=== PATIENT | female | born 1990 | race Two or more races ===

== ENCOUNTER 2025-03-22 15:54 | Emergency (ER) | payer MEDICAID, SELFPAY ==
[2025-03-22 15:55] VITALS: BMI 32.2
[2025-03-22 16:32] LABS: Basophils # (Auto) 0.0 Thou/mm3 (0.0-0.2); Basophils % (Auto) 1 % (0-2.5); Eosinophils # (Auto) 0.2 Thou/mm3 (0.0-0.5); Eosinophils % (Auto) 2 % (0-10); Hematocrit 31.4 % (36.0-46.0); Hemoglobin 10.3 g/dL (12.0-16.0); Immature Granulocytes Auto 0.02 Thou/mm3 (0.00-0.00); Lymphocytes # (Auto) 3.2 Thou/mm3 (1.0-4.8); Lymphocytes % (Auto) 45 % (10-50); Mean Corpuscular HGB Conc 32.8 g/dl (31.0-37.0); Mean Corpuscular Hemoglobin 26.9 pg (25.0-35.0); Mean Corpuscular Volume 82 fL (80-100); Monocytes # (Auto) 0.4 Thou/mm3 (0.0-0.8); Monocytes % (Auto) 6 % (0-12); Neutrophils # (Auto) 3.2 Thou/mm3 (1.8-7.7); Neutrophils % (Auto) 45 % (37-80); Nucleated Red Blood Cell # 0.00 Thou/mm3 (0.00-0.00); Nucleated Red Blood Cell % 0 /100 WBC (0); Platelet Count 276 Thou/mm3 (140-440); RDW Standard Deviation 47.1 fL (36.4-46.3); Red Blood Count 3.83 Miln/mm3 (4.00-5.20); White Blood Count 7.1 Thou/mm3 (3.6-11.0)
[2025-03-22 16:46] LABS: INR 1.0 (0.9-1.3); Partial Thromboplastin Time 24.5 Seconds (22.0-36.0); Prothrombin Time 11.2 Seconds (9.0-12.2)
[2025-03-22 16:50] LABS: Alanine Aminotransferase 12 U/L (10-49); Albumin, Serum 4.2 gm/dL (3.5-5.0); Albumin/Globulin Ratio 1.3 (1.2-2.2); Alkaline Phosphatase 63 U/L (46-116); Amylase 52 U/L (30-118); Anion Gap 9 (7-16); Aspartate Amino Transferase 17 U/L (0-34); BUN/Creatinine Ratio 9 Ratio (12-20); Bilirubin,Total 0.3 mg/dL (0.3-1.2); Blood Urea Nitrogen 6 mg/dL (9-23); Calcium 9.1 mg/dL (8.3-10.6); Calcium (Corrected) 9.1 mg/dL (8.5-10.1); Carbon Dioxide 26.1 mMol/L (20.0-31.0); Chloride 106 mMol/L (98-107); Creatinine (Component) 0.7 mg/dL (0.6-1.3); Estimated Creatinine Clearance 103.3 mL/min (>60); Globulin 3.3 gm/dL (2.3-3.5); Glucose 102 mg/dL (74-106); Lipase 37 U/L (12-53); Magnesium 2.1 mg/dL (1.6-2.6); Osmolality,Calculated 278 (275-295); Potassium 4.6 mMol/L (3.4-5.1); Sodium 141 mMol/L (136-145); Total Protein 7.5 gm/dL (5.7-8.2); eGFR > 60 See Note
[2025-03-22 16:56] VITALS: BP 146/88; PULSE 58; RESP 18; TEMP 36.3; O2SAT 99
--- NOTE | 2025-03-22 17:09 | PD.EDRME ---
Rapid Medical Screening Exam RME Arrival date/time: 03/22/25 15:54 Chief Complaint: Abdominal Pain Time Seen by Provider: 03/22/25 17:06 Vital signs: Vital Signs Temperature 97.4 F 03/22/25 16:56 Pulse Rate 58 L 03/22/25 16:56 Respiratory Rate 18 03/22/25 16:56 Blood Pressure 146/88 H 03/22/25 16:56 Pulse Oximetry (%) 99 03/22/25 16:56 Oxygen Delivery Method Room Air 03/22/25 16:56 Pulse ox is 99% room air Vital signs reviewed by provider: Yes RME Narrative: Patient is a 35-year-old female who presents to ED with a complaint of right upper quadrant pain.
[2025-03-22 17:56] LABS: Collection Type, Urine Clean Catch
[2025-03-22 18:01] LABS: HCG Qualitative,Urine Negative
--- NOTE | 2025-03-22 18:10 | EDNOTE_ITS ---
ED Abdominal Pain RME/HPI General Chief Complaint: Abdominal Pain Stated complaint: LIVER PAIN S/P DRINKING ETOH Time seen by provider: 03/22/25 17:06 Arrival date/time: 03/22/25 15:54 Source: patient Mode of arrival: ambulatory Limitations: no limitations RME / HPI RME / HPI narrative: Patient is a 35-year-old female who presents to ED with a complaint of right u pper quadrant pain. MD complaint: abdominal pain Onset (ago): day(s) (Up to 3 days) Consistency: constant Location: RUQ Severity scale (1-10): 5 Quality: stabbing and aching Context: other (EtOH abuse) Associated symptoms: nausea, vomiting and other (Pain) Related Data Previous Rx's ?Medication ?Instructions ?Recorded cyclobenzaprine 10 mg tablet 10 mg PO HS #20 tabs 04/09 Allergies Allergy/AdvReac Type Severity Reaction Status Date / Time hydrocodone AdvReac Severe Chest Pain Verified 03/22/25 15:57 Review of Systems Constitutional Constitutional: Reports system reviewed and no additional complaints, except as documented Eyes Eyes: Reports system reviewed and no additional complaints, except as documented, Denies dry eyes, Denies exophthalmos and Reports floaters Cardiovascular Cardiovascular: Denies chest pain with activity and Denies claudication ED Exam Narrative Physical exam: The abdomen is tender to palpation in the right upper quadrant. There is mild guarding present. There is no apparent masses present. Negative for rebound tenderness General Limitations: Present no limitations General appearance: Present alert and in no apparent distress Head Head exam: Present atraumatic Eye Eye exam: Present normal appearance and EOMI ENT ENT exam: Present normal exam, normal oropharynx and mucous membranes moist Neck Neck exam: Present normal inspection, full ROM and trachea midline Chest Chest inspection: Present normal inspection Respiratory Respiratory exam: Present normal lung sounds bilaterally Cardiovascular Cardiovascular exam: Present regular rate, normal rhythm and normal heart sounds Abdominal Exam Abdominal exam: Present soft, tenderness (Right upper quadrant) and guarding (Right upper quadrant) Abdominal tenderness: Present RUQ Rectal Exam Rectal exam: Present deferred Extremities Exam Extremities exam: Present normal inspection and full ROM Back Exam Back exam: Present normal inspection and full ROM Neurological Exam Neurological exam: Present alert and oriented X3 Psychiatric Psychiatric exam: Present normal affect and normal mood Skin Skin exam: Present warm, dry, intact and normal color Course Quality Measures none (NA) Orders Category Date Time Status Amylase Stat Lab 03/22/25 16:11 Completed CBC Stat Lab 03/22/25 16:11 Completed Comprehensive Metabolic Panel Stat Lab 03/22/25 16:11 Completed HCG Qualitative,Urine Stat Lab 03/22/25 17:30 Completed Lipase Stat Lab 03/22/25 16:11 Completed Magnesium Stat Lab 03/22/25 16:11 Completed Partial Thromboplastin Time Stat Lab 03/22/25 16:11 Completed Prothrombin Time with INR Stat Lab 03/22/25 16:11 Completed Urinalysis Stat Lab 03/22/25 17:30 Completed Ketorolac Inj [Toradol Inj] Med 03/22/25 18:31 Once 30 mg IM X1 ONE Vital Signs Vital signs: Vital Signs Temperature 97.4 F 03/22/25 16:56 Pulse Rate 58 L 03/22/25 16:56 Respiratory Rate 18 03/22/25 16:56 Blood Pressure 146/88 H 03/22/25 16:56 Pulse Oximetry (%) 99 03/22/25 16:56 Oxygen Delivery Method Room Air 03/22/25 16:56 Abdominal Pain MDM MDM Narrative MDM Narrative:: Patient will be discharged in no apparent distress. She has to follow-up with primary care physician in 1 week. If she is worse she is to return here Patient data External records reviewed:: Other (specify) (NA) Clinical information provided by:: patient Social determinants that could affect healthcare access:: none (NA) Patient has the following chronic illnesses:: NA How is presenting disease/condition affected by chronic disease/condition?: no chronic disease Evaluation data The following diagnostics were reviewed and interpreted by me:: other (specify) (NA) Lab and/or radiology exams considered but not ordered:: NA Interpretation Summary: NA Medications / Prescriptions Medications or Prescriptions considered but not ordered:: NA Medication administrations:: Medication Administration History Ketorolac Tromethamine (Ketorolac Inj 60 Mg/2 Ml Vial) 30 mg IM X1 ONE Stop: 03/22/25 18:32 NA Consultations Consultation(s) initiated? (list below): No Diagnosis Differential diagnosis abdominal pain: calculus of kidney, diverticulitis, endometriosis and pancreatitis Most likely diagnosis given after review of the tests above:: NA Admission Indicated Admission indicated?: not indicated Admission Request Was there a request for admission?: No Disposition Plan Disposition Plan: Discharge Discharge Attestation Discharge Attestation: The patient and all family members were given an opportunity to ask questions and understood the discharge instructions. Discharge instructions specifically effects, indications for sooner follow up or return to the emergency department, and the expected course of current diagnosis. Patient condition: Stable Discharge Plan Plan Patient Disposition: HOME (Self Care) Discharge Disposition comment: Patient to be discharged no apparent distress Patient condition on transfer: Stable Prescriptions/Referrals Prescriptions/Med Rec: New cyclobenzaprine 10 mg tablet 10 mg PO HS Qty: 20 0RF Referrals: Owen Hand MD [Primary Care Provider] - In 1 week Problem List Clinical Impression: Abdominal pain Patient/Caregiver Discharge Instructions Discharge Activity: activity as tolerated Education Materials: Abdominal Pain Print Language: Luxembourgish Stand Alone Forms: Chaya Award Info., Patient Portal Info Letter PA/HEALTH PROMOTION EDUCATOR Supervising Physician CAMILLA/HEALTH PROMOTION EDUCATOR Supervising Physician: ONEIL
[2025-03-22 18:17] LABS: Bilirubin,Urine Negative (Negative); Blood,Urine Negative (Negative); Clarity,Urine Clear (Clear/Hazy); Color,Urine Colorless (Lt Yel-Yel); Glucose, Urine Negative (Negative); Ketones,Urine Negative (Negative); Leukocyte Esterase,Urine Negative (Negative); Nitrite,Urine Negative (Negative); PH,Urine 6.0 (5.0-7.0); Protein,Urine Negative (Neg - Trace); RBC,Urine 1 /hpf (0-3); Specific Gravity,Urine 1.008 (1.001-1.035); Squamous Epithelial Cell,Urine 4 /hpf (0-5); Urobilinogen,Urine Negative mg/dL (0.0-1.0); WBC,Urine 2 /hpf (0-5)
[2025-03-22] MEDS: KETOROLAC INJ 60 MG/2 ML VIAL 30 MG IM (19:00)
== END 2025-03-22 19:25 | disposition home or self-care (01) ==
PROVIDERS: Emergency Provider Family Medicine; PCP Family Medicine
DX: R10.11 Right upper quadrant pain (principal)
CPT/HCPCS: 36415; 80053; 81001; 81025; 82150; 83690; 83735; 85025; 85610; 85730; 96372; 99283; J1885

== ENCOUNTER 2025-03-30 12:17 | Emergency (ER) | payer MEDICAID, SELFPAY ==
[2025-03-30 12:18] VITALS: BMI 33.0
[2025-03-30 12:34] VITALS: BP 136/82; PULSE 99; RESP 18; TEMP 37.2; O2SAT 97
--- NOTE | 2025-03-30 12:45 | XR_ITS ---
Examination: PA chest single view TECHNIQUE: Upright PA chest single view Date and time: March 30, 2025 1225 hours INDICATIONS: Shortness of breath chest pain beginning 3 days ago FINDINGS: Normal heart size Lungs are clear. The osseous structures are intact IMPRESSION: No active disease
--- NOTE | 2025-03-30 12:45 | EKG_ITS ---
[facility] Test Date: 2025-03-30 Pat Name: KOKI BERNABE Department: Room: - Gender: Female [employer] Shear Operator: : 1990 Requested By: Sabino Holley Order Number: [id number] Reading MD: Sabino Holley Measurements Intervals [place] Rate: 80 P: 37 VT: 171 QRS: 33 QRSD: 103 T: 41 QT: 341 QTc: 394 Interpretive Statements SINUS RHYTHM Compared to ECG 12/04/2022 16:11:09 No significant changes /store/S0/[id number].pdf
[2025-03-30 13:05] LABS: Basophils # (Auto) 0.0 Thou/mm3 (0.0-0.2); Basophils % (Auto) 0 % (0-2.5); Eosinophils # (Auto) 0.1 Thou/mm3 (0.0-0.5); Eosinophils % (Auto) 1 % (0-10); Hematocrit 31.8 % (36.0-46.0); Hemoglobin 10.6 g/dL (12.0-16.0); Immature Granulocytes Auto 0.03 Thou/mm3 (0.00-0.00); Lymphocytes # (Auto) 1.6 Thou/mm3 (1.0-4.8); Lymphocytes % (Auto) 14 % (10-50); Mean Corpuscular HGB Conc 33.3 g/dl (31.0-37.0); Mean Corpuscular Hemoglobin 27.3 pg (25.0-35.0); Mean Corpuscular Volume 82 fL (80-100); Monocytes # (Auto) 0.7 Thou/mm3 (0.0-0.8); Monocytes % (Auto) 6 % (0-12); Neutrophils # (Auto) 9.1 Thou/mm3 (1.8-7.7); Neutrophils % (Auto) 78 % (37-80); Nucleated Red Blood Cell # 0.00 Thou/mm3 (0.00-0.00); Nucleated Red Blood Cell % 0 /100 WBC (0); Platelet Count 267 Thou/mm3 (140-440); RDW Standard Deviation 46.6 fL (36.4-46.3); Red Blood Count 3.88 Miln/mm3 (4.00-5.20); White Blood Count 11.7 Thou/mm3 (3.6-11.0)
[2025-03-30] MEDS: DEXAMETHASONE SOD PHOS INJ 10 MG/ML VIAL IM (13:05)
[2025-03-30] MEDS: ALBUTEROL/IPRATROPIUM (Duoneb) RT SOL 3 ML NEBU INH (13:15)
[2025-03-30 13:17] VITALS: PULSE 85; RESP 19; O2SAT 98
[2025-03-30 13:26] LABS: Alanine Aminotransferase 10 U/L (10-49); Albumin, Serum 4.1 gm/dL (3.5-5.0); Albumin/Globulin Ratio 1.2 (1.2-2.2); Alkaline Phosphatase 63 U/L (46-116); Anion Gap 8 (7-16); Aspartate Amino Transferase 14 U/L (0-34); BUN/Creatinine Ratio 10 Ratio (12-20); Bilirubin,Total 0.3 mg/dL (0.3-1.2); Blood Urea Nitrogen 6 mg/dL (9-23); Calcium 8.8 mg/dL (8.3-10.6); Calcium (Corrected) 8.8 mg/dL (8.5-10.1); Carbon Dioxide 28.7 mMol/L (20.0-31.0); Chloride 105 mMol/L (98-107); Creatinine (Component) 0.6 mg/dL (0.6-1.3); Estimated Creatinine Clearance 122.0 mL/min (>60); Globulin 3.4 gm/dL (2.3-3.5); Glucose 114 mg/dL (74-106); Osmolality,Calculated 281 (275-295); Potassium 3.8 mMol/L (3.4-5.1); Sodium 142 mMol/L (136-145); Total Protein 7.5 gm/dL (5.7-8.2); Troponin I < 0.020 ng/mL (0.0-0.045); eGFR > 60 See Note
[2025-03-30 13:27] LABS: HCG,Qualitative Serum Negative
--- NOTE | 2025-03-30 13:43 | PD.EDFEVER ---
ED Fever RME/HPI General Chief Complaint: Fever Stated Complaint: BODY ACHES, FEVER, , SOB SINCE YEST Time Seen by Provider: 03/30/25 12:19 Source: patient Arrival date/time: 03/30/25 12:17 This is a case of 35-year-old female with no medical history came in in the emergency room due to fever generalized body ache cough nasal congestion for 2 days persistence of the symptoms now with shortness of breath and chest pain this patient decided to start consult here in the emergency room Limitations: no limitations Related Data Previous Rx's ?Medication ?Instructions ?Recorded cyclobenzaprine 10 mg tablet 10 mg PO HS #20 tabs 03/22/25 albuterol sulfate 90 mcg/actuation 2 puff inhalation Q6H PRN 03/30/25 aerosol inhaler (Ventolin HFA) shortness of breath or wheezing #8.5 grams azithromycin 250 mg tablet See Rx Instructions PO .COMPLEX #6 03/30/25 (Zithromax Z-Tank) tabs prednisone 20 mg tablet See Taper PO QDAY 5 days #5 tabs 03/30/25 promethazine-DM 6.25 mg-15 mg/5 mL 5 ml PO Q6H PRN cough #118 mL 03/30/25 oral syrup Allergies Allergy/AdvReac Type Severity Reaction Status Date / Time hydrocodone AdvReac Severe Chest Pain Verified 03/30/25 12:20 Review of Systems Review of Systems Systems Reviewed: All systems reviewed, normal except as documented Constitutional Constitutional: Reports system reviewed and no additional complaints, except as documented, Reports body ache(s), Denies chills, Reports fever(s) and Denies snoring ENT Ears, Nose, Mouth, and Throat: Reports system reviewed and no additional complaints, except as documented and Reports as per HPI Cardiovascular Cardiovascular: Reports system reviewed and no additional complaints, except as documented, Reports chest pain, Reports dyspnea and Denies dyspnea on exertion Respiratory Respiratory: Reports system reviewed and no additional complaints, except as documented, Reports as per HPI, Reports chest congestion, Reports cough, Reports dyspnea, Denies dyspnea on exertion, Denies excessive phlegm production, Denies hemoptysis, Denies pain on inspiration, Reports pain with cough, Denies snoring, Denies stridor and Denies wheezing Gastrointestinal Gastrointestinal: Reports system reviewed and no additional complaints, except as documented, Reports as per HPI, Denies abdominal pain, Denies nausea and Denies vomiting Neurologic Neurologic: Reports system reviewed and no additional complaints, except as documented and Reports as per HPI Allergic/Immunologic Allergic/Immunologic: Denies wheezing Past Medical History Past Medical History NEUROLOGIC: Negative Seizures CARDIAC: Negative Congestive Heart Failure RESPIRATORY: Negative Chronic Obstructive Pulmonary Disease (COPD) GENITOURINARY: Negative Renal Disease ENDOCRINE: Negative Diabetes Mellitus Type 1 or Diabetes Mellitus Type 2 OTHER HISTORY: Negative Blood Transfusions, Blood Transfusion Reaction or Anesthesia Reactions Family History FAMILY HISTORY: Negative Family Cardiac Disorders Surgical History SURGICAL: Positive Tonsillectomy and Section Social History SMOKING STATUS: Never smoker Physical Exam General Limitations: no limitations General appearance: alert, in no apparent distress and other (Patient is awake alert oriented not in distress nontoxic looking well-hydrated well-nourished) Head Head exam: atraumatic, normocephalic and normal inspection Eye Eye exam: Present normal appearance, PERRL and EOMI ENT ENT exam: Present normal exam, normal oropharynx, mucous membranes moist and other (HEENT exam is normal) Neck Neck exam: Present normal inspection, full ROM, trachea midline, tenderness, meningismus, lymphadenopathy, thyromegaly and other (Negative for meningeal sign) Chest Chest inspection: Present normal inspection and symmetric chest wall rise; Absent tenderness Respiratory Respiratory exam: Present normal lung sounds bilaterally and wheezes (Wheezing both lower lung field no crackles no rales no retraction no stridor); Absent respiratory distress Cardiovascular Cardiovascular exam: Present regular rate, normal rhythm and normal heart sounds; Absent bradycardia, tachycardia, irregular rhythm, systolic murmur or diastolic murmur Abdominal Exam Abdominal exam: Present soft and normal bowel sounds; Absent distention, tenderness, guarding, rebound, rigidity, diminished bowel sounds, hyperactive bowel sounds or hypoactive bowel sounds Extremities Exam Extremities exam: Present normal inspection and full ROM Back Exam Back exam: Present normal inspection and full ROM Neurological Exam Neurological exam: Present alert, oriented X3, CN II-XII intact, normal gait and reflexes normal; Absent motor sensory deficit Psychiatric Psychiatric exam: Present normal affect and normal mood Skin Skin exam: Present warm, dry, intact and normal color ED Exam General Limitations: Present no limitations General appearance: Present alert, in no apparent distress and other (Patient is awake alert oriented not in distress nontoxic looking well-hydrated well-nourished) Head Head exam: Present atraumatic, normocephalic and normal inspection Eye Eye exam: Present normal appearance, PERRL and EOMI ENT ENT exam: Present normal exam, normal oropharynx, mucous membranes moist and other (HEENT exam is normal) Neck Neck exam: Present normal inspection, full ROM, trachea midline, tenderness, meningismus, lymphadenopathy, thyromegaly and other (Negative for meningeal sign) Chest Chest inspection: Present normal inspection and symmetric chest wall rise; Absent tenderness Respiratory Respiratory exam: Present normal lung sounds bilaterally and wheezes (Wheezing both lower lung field no crackles no rales no retraction no stridor); Absent respiratory distress Cardiovascular Cardiovascular exam: Present regular rate, normal rhythm and normal heart sounds; Absent bradycardia, tachycardia, irregular rhythm, systolic murmur or diastolic murmur Abdominal Exam Abdominal exam: Present soft and normal bowel sounds; Absent distention, tenderness, guarding, rebound, rigidity, diminished bowel sounds, hyperactive bowel sounds or hypoactive bowel sounds Extremities Exam Extremities exam: Present normal inspection and full ROM Back Exam Back exam: Present normal inspection and full ROM Neurological Exam Neurological exam: Present alert, oriented X3, CN II-XII intact, normal gait and reflexes normal; Absent motor sensory deficit Psychiatric Psychiatric exam: Present normal affect and normal mood Skin Skin exam: Present warm, dry, intact and normal color Course Quality Measures none Orders Category Date Time Status Bedside COVID-19 Antigen Test NOW Care 03/30/25 12:45 Active Bedside Influenza A&B Antigen Test NOW Care 03/30/25 12:45 Completed EKG (ED ONLY) *Do not use* NOW Care 03/30/25 12:45 Completed EKG (ED Only) Stat Exams 03/30/25 12:45 Draft XR chest 1V portable Stat Exams 03/30/25 12:45 Completed CBC Stat Lab 03/30/25 12:55 Completed CMP [Comprehensive Metabolic Panel] Stat Lab 03/30/25 12:55 Completed HCG,Qualitative Serum Stat Lab 03/30/25 12:55 Completed Troponin I Stat Lab 03/30/25 12:55 Completed Albuterol/Ipratr Rt Constance [Duoneb Rt Constance] Med 03/30/25 12:45 Discontinued 3 ml INH X1 ONE Dexamethasone Inj [Decadron Inj] Med 03/30/25 12:45 Discontinued 10 mg IM X1 ONE Vital Signs Vital signs: Vital Signs Temperature 98.9 F 03/30/25 12:34 Pulse Rate 99 03/30/25 12:34 Respiratory Rate 18 03/30/25 12:34 Blood Pressure 136/82 H 03/30/25 12:34 Pulse Oximetry (%) 97 03/30/25 12:34 Oxygen Delivery Method Room Air 03/30/25 12:34 Patient is afebrile not tachycardic not tachypneic BP stable Pulsoxymeter is 97% in room air normal Fever MDM Narrative MDM Narrative:: This is a case of 35-year-old female with no medical history came in in the emergency room due to fever generalized body ache cough nasal congestion for 2 days persistence of the symptoms now with shortness of breath and chest pain this patient decided to start consult here in the emergency room physical examination patient is awake alert oriented not in distress nontoxic looking well-hydrated well-nourished negative for meningeal sign HEENT exam is normal and unremarkable lungs have disc wheezing both lower lung field no crackles no rales no retraction no stridor heart normal rate regular rhythm no murmur the rest of the physical examination neurological exam is normal and unremarkable blood test showed negative for COVID-negative for flu chest x-ray is normal EKG sinus rhythm normal troponin is negative BNP is negative no leukocytosis no anemia kidney and liver function is normal no electrolyte imbalance at this point patient was given dexamethasone and DuoNeb which patient condition markedly improved patient was reassessed after 1 hour patient has no shortness of breath no chest pain patient verbalized improvement of the symptoms patient will follow-up with PCP in 2 days for reevaluation chest pain is not cardiac origin possible due to acute bronchitis no signs and symptoms of sepsis dehydration or hypoxia patient will follow-up with PCP in 2 days for evaluation for chest pain and for possible echocardiogram stress test and Holter monitor recurrence persistent worsening symptoms return precaution was advised Patient was discharged with comfortable condition walking with stable gait. Patient verbalized no further complains explained diagnosis and answered patient question. Patient is comfortable with the proposed management plan including the need to follow up with his/her primary care physician and any specialist if applicable Discussed patient for any urgent condition or worsening sx, He/She needed to go to emergency room immediately or call 911. Patient acknowledge the responsibility to follow up as instructed and to monitor her/his symptoms. For any persistence of the symptoms for more than 3-5 days return precaution advised. Discussed the result of the test and was given printed discharge instruction Patient data External records reviewed:: [facility] previous records Clinical information provided by:: patient Social determinants that could affect healthcare access:: none Patient has the following chronic illnesses:: None How is presenting disease/condition affected by chronic disease/condition?: no chronic disease Evaluation data The following diagnostics were reviewed and interpreted by me:: lab results and radiology exam(s) Lab and/or radiology exams considered but not ordered:: Reviewed Interpretation Summary: Reviewed Medications / Prescriptions Medications or Prescriptions considered but not ordered:: Given Medication administrations:: Medication Administration History Discontinued Medications Albuterol/Ipratropium (Albuterol/Ipratropium (Duoneb) Rt Constance 3 Ml Nebu) 3 ml INH X1 ONE Stop: 03/30/25 12:46 Last Admin: 03/30/25 13:15 Dose: 3 ml Documented By: ALIREZA Dexamethasone Sodium Phosphate (Dexamethasone Sod Phos Inj 10 Mg/Ml Vial) 10 mg IM X1 ONE Stop: 03/30/25 12:46 Last Admin: 03/30/25 13:05 Dose: 10 mg Documented By: DAJUAN Given Consultations Consultation(s) initiated? (list below): No Diagnosis Fever Differential Diagnosis: fever of unknown origin, gastroenteritis, community acquired pneumonia, pyelonephritis, viral infection and influenza Most likely diagnosis given after review of the tests above:: Acute bronchitis Admission Indicated Admission indicated?: not indicated Explain why admission is indicated or not indicated:: Not indicated Admission Request Was there a request for admission?: No Admission Attestation Admission request attestation: Not indicated Disposition Plan Disposition Plan: Discharge Discharge Attestation Discharge Attestation: The patient and all family members were given an opportunity to ask questions and understood the discharge instructions. Discharge instructions specifically effects, indications for sooner follow up or return to the emergency department, and the expected course of current diagnosis. Patient condition: Stable Discharge Plan Plan Patient Disposition: HOME (Self Care) Patient condition on transfer: Stable Prescriptions/Referrals Prescriptions/Med Rec: New azithromycin [Zithromax Z-Tank] 250 mg tablet See Rx Instructions .ROUTE .COMPLEX Qty: 6 0RF Rx Instructions: For 250 mg dose pack: take 500 mg today (day 1), then 250 mg for 4 days (days 2-5) prednisone 20 mg tablet See Taper PO QDAY 5 Days Qty: 5 0RF Taper: Prednisone Taper 20 mg DAILY for 2 Days and 0 Hour 10 mg DAILY for 2 Days and 0 Hour 5 mg DAILY for 7 Days and 0 Hour albuterol sulfate [Ventolin HFA] 90 mcg/actuation HFA aerosol inhaler 2 puff inhalation Q6H PRN (Reason: shortness of breath or wheezing) Qty: 8.5 0RF promethazine-DM 6.25-15 mg/5 mL syrup 5 ml PO Q6H PRN (Reason: cough) Qty: 118 0RF No Action cyclobenzaprine 10 mg tablet 10 mg PO HS Qty: 20 0RF Referrals: Owen Hand MD [Primary Care Provider] - In 1 week Problem List Clinical Impression: Fever, Chest pain of unknown etiology, Acute bronchitis Patient/Caregiver Discharge Instructions Education Materials: Acute Bronchitis, ED Chest Pain, Uncertain Cause, ED FUO Adult Additional Instructions: Follow-up with your primary care physician in 2 days for reevaluation and to be referred to sewage plant supervisor for further evaluation and treatment of chest pain for possible echocardiogram stress test and Holter monitor recurrence persistent worsening symptoms or any emergent concern call 911 or go to the nearest emergency room take your medication as directed finish the course of antibiotic increase water intake keep hydrated Print Language: Japanese Stand Alone Forms: Chaya Award Info., Patient Portal Info Letter CAMILLA/SHIVA Supervising Physician CAMILLA/SHIVA Supervising Physician: Dr Jaime
[2025-03-30 13:49] VITALS: BP 139/90; PULSE 87; RESP 17; TEMP 36.6; O2SAT 100
== END 2025-03-30 14:09 | disposition home or self-care (01) ==
PROVIDERS: Nurse Practitioner Family; Emergency Provider Emergency Medicine; PCP Family Medicine
DX: J20.9 Acute bronchitis, unspecified (principal); R07.9 Chest pain, unspecified
CPT/HCPCS: 36415; 71045; 80053; 84484; 84703; 85025; 87400; 87811; 93005; 94640; 96372; 99284; A9270; J1100

== ENCOUNTER 2025-08-19 15:23 | Emergency (ER) | payer MEDICAID, SELFPAY ==
[2025-08-19 15:23] VITALS: BMI 34.3
[2025-08-19 15:49] VITALS: BP 154/87; PULSE 70; RESP 16; TEMP 36.7; O2SAT 100
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
== END 2025-08-19 16:30 | disposition home or self-care (01) ==
LOC: SERX 16:09
PROVIDERS: Emergency Provider Nurse Practitioner Primary Care
DX: R20.2 Paresthesia of skin (principal); M54.2 Cervicalgia; S09.90XA Unspecified injury of head, initial encounter; V49.9XXA Car occupant (driver) (passenger) injured in unspecified traffic accident, initial encounter
CPT/HCPCS: 99281

== ENCOUNTER 2025-09-13 14:01 | Emergency (ER) | payer MEDICAID, SELFPAY ==
--- NOTE | 2025-09-13 14:20 | XR_ITS ---
Examination: Complete OB ultrasound, less than 14 weeks, transabdominal Date and time of exam: September 13, 2025, 1540 hours INDICATIONS: Vaginal bleeding episode 2 months ago Technique: Obstetrical ultrasound images less than 14 weeks performed via transabdominal imaging Findings: Uterus 11.1 cm intrauterine gestational sac 0.7 cm corresponds to 5 weeks 3 days gestational age No pole, no cardiac motion Right ovary 3.5 cm arterial flow Left ovary 4.1 cm arterial flow IMPRESSION: Empty intrauterine gestational sac corresponding to 5 weeks 3 days gestational age, no pole, no cardiac activity Recommend short-term follow-up transvaginal pelvic sonography to confirm viability
[2025-09-13 14:22] VITALS: BP 134/81; PULSE 85; RESP 18; TEMP 37; O2SAT 98
--- NOTE | 2025-09-13 14:23 | EDNOTE_ITS ---
ED OB Contraction Preg RMI/HPI General Stated complaint: ASSISTED CLEARANCE Time Seen by Provider: 09/13/25 14:22 Source: patient Arrival date/time: 09/13/25 14:01 35-year-old female with no known medical history presents to the emergency room for medical longterm clearance she is . Mode of arrival: ambulatory Limitations: no limitations Related Data Previous Rx's ?Medication ?Instructions ?Recorded cyclobenzaprine 10 mg tablet 10 mg PO HS #20 tabs 04/09 albuterol sulfate 90 mcg/actuation 2 puff inhalation Q 6H PRN 03/30/25 aerosol inhaler (Ventolin HFA) shortness of breath or wheezing #8.5 grams azithromycin 250 mg tablet See Rx Instructions PO .COM PLEX #6 03/30/25 (Zithromax Z-Tank) tabs promethazine-DM 6.25 mg-15 mg/5 mL 5 ml PO Q6H PRN cou gh #118 mL 03/30/25 oral syrup Allergies Allergy/AdvReac Type Severity Reaction Status Date / Time hydrocodone AdvReac Severe Chest Pain Verified 08/19/25 15:31 Review of Systems Review of Systems Systems Reviewed: All systems reviewed, normal except as documented Constitutional Constitutional: Reports system reviewed and no additional complaints, except as documented, Denies fatigue, Denies fever(s), Denies headache(s) and Denies weakness Eyes Eyes: Reports system reviewed and no additional complaints, except as documented, Denies blurry vision and Denies change in vision ENT Ears, Nose, Mouth, and Throat: Reports system reviewed and no additional complaints, except as documented, Denies otalgia, Denies headache(s), Denies nasal congestion, Denies throat swelling and Denies vertigo Cardiovascular Cardiovascular: Reports system reviewed and no additional complaints, except as documented, Denies chest pain, Denies dyspnea and Denies dyspnea on exertion Respiratory Respiratory: Reports system reviewed and no additional complaints, except as documented, Denies chest congestion, Denies cough, Denies dyspnea, Denies dyspnea on exertion and Denies wheezing Gastrointestinal Gastrointestinal: Reports system reviewed and no additional complaints, except as documented, Denies abdominal pain, Denies cramping, Denies nausea and Denies vomiting Genitourinary Genitourinary: Reports system reviewed and no additional complaints, except as documented Musculoskeletal Musculoskeletal: Reports system reviewed and no additional complaints, except as documented and Denies back pain Integumentary/Breasts Skin/Breast: Reports system reviewed and no additional complaints, except as documented and Denies wounds Neurologic Neurologic: Reports system reviewed and no additional complaints, except as documented, Denies confusion, Denies headache(s), Denies lack of coordination, Denies vertigo and Denies weakness Psychiatric Psychiatric: Reports system reviewed and no additional complaints, except as documented, Denies anxiety, Denies confusion, Denies depression, Denies paranoia, Denies suicidal ideation and Denies tactile hallucinations Endocrine Endocrine: Reports system reviewed and no additional complaints, except as documented and Denies fatigue Hematologic/Lymphatic Hematologic/Lymphatic: Reports system reviewed and no additional complaints, except as documented and Denies lymphadenopathy Allergic/Immunologic Allergic/Immunologic: Reports system reviewed and no additional complaints, except as documented, Denies throat swelling, Denies urticaria and Denies wheezing Past Medical History Past Medical History NEUROLOGIC: Negative Seizures CARDIAC: Negative Congestive Heart Failure RESPIRATORY: Negative Chronic Obstructive Pulmonary Disease (COPD) GENITOURINARY: Negative Renal Disease ENDOCRINE: Negative Diabetes Mellitus Type 1 or Diabetes Mellitus Type 2 OTHER HISTORY: Negative Blood Transfusions, Blood Transfusion Reaction or Anesthesia Reactions Family History FAMILY HISTORY: Negative Family Cardiac Disorders Surgical History SURGICAL: Positive Tonsillectomy and Section Social History SMOKING STATUS: Never smoker ED Exam General Limitations: Present no limitations General appearance: Present alert and in no apparent distress Head Head exam: Present atraumatic Eye Eye exam: Present normal appearance, PERRL and EOMI ENT ENT exam: Present normal exam, normal oropharynx and mucous membranes moist Neck Neck exam: Present normal inspection, full ROM and trachea midline Chest Chest inspection: Present normal inspection and symmetric chest wall rise Respiratory Respiratory exam: Present normal lung sounds bilaterally Cardiovascular Cardiovascular exam: Present regular rate, normal rhythm and normal heart sounds Abdominal Exam Abdominal exam: Present soft and normal bowel sounds Extremities Exam Extremities exam: Present normal inspection and full ROM Back Exam Back exam: Present normal inspection and full ROM Neurological Exam Neurological exam: Present alert, oriented X3 and CN II-XII intact Psychiatric Psychiatric exam: Present normal affect and normal mood Skin Skin exam: Present warm, dry, intact and normal color Course Quality Measures none Orders Category Date Time Status US OB <= 14 weeks fetus Stat Exams 09/13/25 14:20 Completed ABO/RH Type Stat Lab 09/13/25 15:02 Completed Beta HCG,Quantitative Stat Lab 09/13/25 15:02 Completed CBC Stat Lab 09/13/25 15:02 Completed CMP [Comprehensive Metabolic Panel] Stat Lab 09/13/25 15:02 Completed UA [Urinalysis] Stat Lab 09/13/25 15:22 Completed Vital Signs Vital signs: Vital Signs Temperature 98.6 F 09/13/25 14:22 Pulse Rate 85 09/13/25 14:22 Respiratory Rate 18 09/13/25 14:22 Blood Pressure 134/81 H 09/13/25 14:22 Pulse Oximetry (%) 98 09/13/25 14:22 Oxygen Delivery Method Room Air 09/13/25 14:22 OB/Uterine Contractions MDM Narrative MDM Narrative:: 35-year-old female with no known medical history presents to the emergency room for medical longterm clearance she is . Patient is hemodynamically stable and in no apparent distress. Patient denies any vaginal bleeding or any abdominal pain. Patient has no abdominal or complaints. Patient states that she just found out she was right now while she was in longterm. Patient states she has not had her period in the last 2 months. Ultrasound was completed and shows a at 5 weeks and 3 days. No heart tones were noted at this time no cardiac activity hCG levels are at 5628 Patient was medically cleared for incarceration and educated to follow-up with her LANDSCAPE MANAGER Patient was discharged and educated to follow-up with primary care provider in the next 24 to 48 hours and return to the emergency room for any evidence of worsening signs or symptoms Patient data External records reviewed:: [facility] previous records Clinical information provided by:: patient Social determinants that could affect healthcare access:: none Patient has the following chronic illnesses:: No chronic illness How is presenting disease/condition affected by chronic disease/condition?: no chronic disease Evaluation data The following diagnostics were reviewed and interpreted by me:: lab results and radiology exam(s) Lab and/or radiology exams considered but not ordered:: Labs and radiology exams considered and ordered Interpretation Summary: Ultrasound OB-Findings: Uterus 11.1 cm intrauterine gestational sac 0.7 cm corresponds to 5 weeks 3 days gestational age No pole, no cardiac motion Right ovary 3.5 cm arterial flow Left ovary 4.1 cm arterial flow IMPRESSION: Empty intrauterine gestational sac corresponding to 5 weeks 3 days gestational age, no pole, no cardiac activity Recommend short-term follow-up transvaginal pelvic sonography to confirm viability Medications / Prescriptions Medications or Prescriptions considered but not ordered:: No medication given Medication administrations:: Medication given Consultations Consultation(s) initiated? (list below): No Diagnosis OB Contractions Differential Diagnosis: pre-eclampsia, eclampsia and other (Medical clearance for incarceration) Most likely diagnosis given after review of the tests above:: Medical clearance for incarceration Admission Indicated Admission indicated?: not indicated Explain why admission is indicated or not indicated:: N/A Admission Request Was there a request for admission?: No Disposition Plan Disposition Plan: Discharge Discharge Attestation Discharge Attestation: The patient and all family members were given an opportunity to ask questions and understood the discharge instructions. Discharge instructions specifically effects, indications for sooner follow up or return to the emergency department, and the expected course of current diagnosis. Patient condition: Stable Discharge Plan Plan Patient Disposition: HOME (Self Care) Discharge Disposition comment: Stable Prescriptions/Referrals Prescriptions/Med Rec: No Action cyclobenzaprine 10 mg tablet 10 mg PO HS Qty: 20 0RF azithromycin [Zithromax Z-Tank] 250 mg tablet See Rx Instructions .ROUTE .COMPLEX Qty: 6 0RF Rx Instructions: For 250 mg dose pack: take 500 mg today (day 1), then 250 mg for 4 days (days 2-5) albuterol sulfate [Ventolin HFA] 90 mcg/actuation HFA aerosol inhaler 2 puff inhalation Q6H PRN (Reason: shortness of breath or wheezing) Qty: 8.5 0RF promethazine-DM 6.25-15 mg/5 mL syrup 5 ml PO Q6H PRN (Reason: cough) Qty: 118 0RF Referrals: Owen Hand MD [Primary Care Provider, Family Practice] - In 1 week Problem List Clinical Impression: Medical clearance for incarceration Patient/Caregiver Discharge Instructions Additional Instructions: Please follow-up with your LANDSCAPE MANAGER in the next 24 to 48 hours An ultrasound was completed and you are currently 5 weeks and 3 days. At this time you are very early on in your and no heart tones could be found Your hCG levels are at 5628. At this time you are medically cleared for incarceration. For any evidence of worsening signs or symptoms return to the emergency room immediately Print Language: Setswana Stand Alone Forms: Chaya Award Info., Work/School Release, Patient Portal Info Letter PA/ACCOUNTS RECEIVABLE REPRESENTATIVE Supervising Physician PA/ACCOUNTS RECEIVABLE REPRESENTATIVE Supervising Physician: Dr. Peterson
[2025-09-13 15:22] LABS: Basophils # (Auto) 0.0 Thou/mm3 (0.0-0.2); Basophils % (Auto) 0 % (0-2.5); Eosinophils # (Auto) 0.2 Thou/mm3 (0.0-0.5); Eosinophils % (Auto) 2 % (0-10); Hematocrit 33.7 % (36.0-46.0); Hemoglobin 10.9 g/dL (12.0-16.0); Immature Granulocytes Auto 0.01 Thou/mm3 (0.00-0.00); Lymphocytes # (Auto) 2.8 Thou/mm3 (1.0-4.8); Lymphocytes % (Auto) 31 % (10-50); Mean Corpuscular HGB Conc 32.3 g/dl (31.0-37.0); Mean Corpuscular Hemoglobin 26.8 pg (25.0-35.0); Mean Corpuscular Volume 83 fL (80-100); Monocytes # (Auto) 0.5 Thou/mm3 (0.0-0.8); Monocytes % (Auto) 5 % (0-12); Neutrophils # (Auto) 5.6 Thou/mm3 (1.8-7.7); Neutrophils % (Auto) 62 % (37-80); Nucleated Red Blood Cell # 0.00 Thou/mm3 (0.00-0.00); Nucleated Red Blood Cell % 0 /100 WBC (0); Platelet Count 393 Thou/mm3 (140-440); RDW Standard Deviation 47.2 fL (36.4-46.3); Red Blood Count 4.07 Miln/mm3 (4.00-5.20); White Blood Count 9.0 Thou/mm3 (3.6-11.0)
[2025-09-13 15:26] LABS: Collection Type, Urine Clean Catch; RBC,Urine 0 /hpf (0-3)
[2025-09-13 15:45] LABS: Bacteria,Urine Rare; Bilirubin,Urine Negative (Negative); Blood,Urine Negative (Negative); Clarity,Urine Clear (Clear/Hazy); Color,Urine Colorless (Lt Yel-Yel); Glucose, Urine Negative (Negative); Ketones,Urine Negative (Negative); Leukocyte Esterase,Urine Positive (Negative); Nitrite,Urine Negative (Negative); PH,Urine 5.5 (5.0-7.0); Protein,Urine Negative (Neg - Trace); Specific Gravity,Urine 1.007 (1.001-1.035); Squamous Epithelial Cell,Urine 1 /hpf (0-5); Urobilinogen,Urine Negative mg/dL (0.0-1.0); WBC,Urine 4 /hpf (0-5)
[2025-09-13 15:54] LABS: Alanine Aminotransferase 10 U/L (10-49); Albumin, Serum 4.6 gm/dL (3.5-5.0); Albumin/Globulin Ratio 1.2 (1.2-2.2); Alkaline Phosphatase 89 U/L (46-116); Anion Gap 11 (7-16); Aspartate Amino Transferase 16 U/L (0-34); BUN/Creatinine Ratio 8 Ratio (12-20); Bilirubin,Total 0.3 mg/dL (0.3-1.2); Blood Urea Nitrogen < 5 mg/dL (9-23); Calcium 8.9 mg/dL (8.3-10.6); Calcium (Corrected) 8.9 mg/dL (8.5-10.1); Carbon Dioxide 22.6 mMol/L (20.0-31.0); Chloride 105 mMol/L (98-107); Creatinine (Component) 0.6 mg/dL (0.6-1.3); Globulin 4.0 gm/dL (2.3-3.5); Glucose 97 mg/dL (74-106); Osmolality,Calculated 274 (275-295); Potassium 4.5 mMol/L (3.4-5.1); Sodium 139 mMol/L (136-145); Total Protein 8.6 gm/dL (5.7-8.2); eGFR > 60 See Note
[2025-09-13 16:14] LABS: Beta HCG,Quantitative 5628 mIU/mL (<5.0)
== END 2025-09-13 16:37 | disposition home or self-care (01) ==
PROVIDERS: Emergency Provider Nurse Practitioner Family; PCP Family Medicine
DX: Z02.89 Encounter for other administrative examinations (principal); O36.80X0 Pregnancy with inconclusive fetal viability, not applicable or unspecified; Z3A.01 Less than 8 weeks gestation of pregnancy
CPT/HCPCS: 36415; 76801; 80053; 81001; 84702; 85025; 86900; 86901; 99282